=== PATIENT | male | born 1990 | race Caucasian/White ===

== ENCOUNTER 2025-04-09 16:58 | Emergency (ER) | payer BC, SELFPAY ==
[2025-04-09 16:58] VITALS: BP 126/85; PULSE 66; RESP 16; TEMP 36.4; O2SAT 100; BMI 25.6
[2025-04-09 17:10] VITALS: BP 126/85; PULSE 66; RESP 16; TEMP 36.6; O2SAT 100
--- NOTE | 2025-04-09 17:18 | EX.ED.DYSGE1 ---
HPI History of Present Illness Chief Complaint: Edema Detail of Chief Complaint: Patient with rash on bilateral hands that itches. Informant: patient Onset/Context/Timing Onset: Days Context: Gradual Onset Timing: Continuous Current Severity: Mild Maximum Severity: Mild Narrative Narrative: Healthy 34-year-old male no past medical history. Has had an intermittent rash on his hands that itches this is the third time since November. He does get exposed to certain chemicals at work but has never had a problem with them until recently. If that is the cause at all. He denies any illness. He denies any pain or pus. Prior similar symptoms: Yes Recent Illness/Hospitalization: No PFSH PFSH Medical History no medical history no medical history Home Medications ?Medication ?Instructions ?Recorded ?Last Taken ?Type prednisone 20 mg tablet 40 mg (2 x 20 mg) PO DAILY 7 days 04/09/25 Unknown Rx #14 tabs Allergy/AdvReac Type Severity Reaction Status Date / Time No Known Allergies Allergy Verified 04/09/25 17:01 Surgical History no surgical history Social History Smoking Status: Never smoker ROS ROS ED ROS Narrative Denies recent illness. Rash on his hands that itches. Constitutional Constitutional ED: Denies chills or fever(s) Eyes Eyes: Denies blurry vision ENT ENT ED: Denies ear pain Cardiovascular Cardiovascular: Denies chest pain Respiratory/Chest Respiratory/Chest: Denies cough or dyspnea Gastrointestinal Gastrointestinal: Denies abdominal pain, diarrhea, nausea or vomiting Genitourinary Genitourinary ED: Denies dysuria Musculoskeletal Musculoskeletal: Denies arthralgias or back pain Integumentary Reports rash; Denies abscess or Abrasions Neurologic Neurologic: Denies headache(s) Psychiatric Psychiatric: Denies anxiety Endocrine Endocrinology: Denies cold intolerance Hematologic/Lymphatic Hematologic/Lymphatic: Reports none Allergic/Immunologic Allergic/Immunologic ED: Denies mouth swelling, tongue swelling or urticaria EXAM Physical Exam Narrative Exam Narrative: Well-appearing 34-year-old male. Vital signs stable afebrile he does not look septic or toxic he is in no acute distress. H EENT exam pupils are round react light. Moist mucous membranes. Neck nontender no lymphadenopathy. Back nontender. Lungs clear to auscultation bilaterally. Heart regular rhythm rate about 65 no murmur. Chest wall ribs nontender. Abdomen soft nontender. Moving all 4 extremities. On the top of his knuckles on his MCPs bilaterally. Mildly red minimally swollen. Consistent with a contact dermatitis. There is a small similar rash on his dorsum of his forearms. There is no lymphangitic streaking. Is not hot. Not tender. Does not look like cellulitis. There is no axillary lymphadenopathy. He has full flexion extension of both hands. Neurologically he is awake alert. He is answer questions follow commands Const Vital Signs: 04/09/25 16:58 04/09/25 17:10 Temperature 97.6 F L 98 F Temperature Source Temporal Pulse Rate 66 66 Respiratory Rate 16 16 Blood Pressure 126/85 H 126/85 H Blood Pressure Mean 98 98 Pulse Ox 100 100 Oxygen Delivery Method Room Air MDM MDM MDM Narrative Medical decision making narrative: 34-year-old male most likely contact dermatitis or allergic reaction to chemicals exposed to at work. Currently is on no medications other than occasionally takes ibuprofen when this occurs. He has been on no recent antibiotics. He does not need any imaging or lab work. He is placed on prednisone. Outpatient follow-up with insurance examining clerk if not improved. History & Record Review Discussion w/independent historian: Patient Additional record(s) reviewed:: No prior records Discharge Plan Triage Chief Complaint: Edema ED Provider: Gonzales Manzo Dx/Rx/DC Orders Clinical Impression: Contact dermatitis, Allergic reaction Instructions: ED General Allergic Reactions, ED Contact Dermatitis Prescriptions: New prednisone 20 mg tablet 40 mg PO DAILY 7 Days Qty: 14 1RF Primary Care Provider: GEOVANNI Gonsalez Referrals: Marjan Johnson MD [Non-Staff, Dermatology] - 1 Week if not improving GEOVANNI Gonsalez [Primary Care Provider, None] Activity Restrictions/Additional Instructions: Most likely allergic reaction or contact dermatitis something your hands are coming contact with your allergic to. Motrin for any pain and swelling. Ice and elevate to decrease the swelling. The steroid prednisone 40 mg a day till this is gone. Follow-up with a insurance examining clerk if not improving return if a lot worse. Print Language: [place] Disposition Disposition: Home, Self Care
--- OUTSIDE RECORDS SUMMARY | 2025-04-09 17:32 | XMS RPT_ITS | CCD ---
Author Organization [facility] Inform ion Partnership [facility] Care Team Providers Care Cured Meats Supervisor Name Role Phone Unavailable Primary Care Provider Unavailabl e Allergies Allergy Classification Reported Allergen(s) Allergy Type Date of Onset Reaction(s) Facility (2 sources) bee venom Propensity to adverse reactions to drug 12-08-2019 [facility]- [place], [place] Medications Current Medications Medication Drug Class(es) Dates Sig (Normalized) Sig (Original) ascorbic acid 500 mg chewable tablet (2 sources) Vitamin C take 1 tablet by shaka th once daily ascorbic acid (Vitamin C) 500 MG tablet Take 500 mg by mouth daily. Active take 1 tablet by mouth once ruchi y vitamin C (ASCORBIC ACID) 500 MG tablet Take 500 mg by mouth daily 0 Active 2 ml famotidine 10 mg/ml injection (2 sources) Histamine-2 Receptor Antagonist Start: 12-08-2019 famotidine (PEPCID) injection 20 mg Start: 12-08-2019 End: 12-15-2019 take 1 tablet by mouth twice daily famotidine (PEPCID) 20 MG tablet Take 1 tablet by mouth 2 times daily for 7 days 14 tablet 0 12/08/2019 12/15/2019 Active predniSONE 10 mg oral tablet (1 source) Start: 12-08-2019 End: 12-12-2019 take 4 tablets by mouth once daily predniSONE (DELTASONE) 10 MG tablet Take 4 tablets by mouth daily for 4 days 16 tablet 0 12/08/2019 12/12/2019 Active Completed/Discontinued Medications Medication Drug Class(es) Dates Sig (Normalized) Sig (Original) 1 ml diphenhydrAMINE hydrochloride 50 mg/ml cartridge (2 sources) Histamine-1 Receptor Antagonist Start: 12-08-2019 End: 12-08-2019 diphenhydrAMINE (BENADRYL) injection 25 mg Start: 12-08-2019 End: 12-15-2019 take 1 tablet by mouth every six hours as needed diphenhydrAMINE (BENADRYL ALLERGY) 25 MG tablet Take 1 tablet by mouth every 6 hours as needed for Itching or Allergies Do not perform important or sensitive activities while taking Benadryl, do not drive with this medication or drink alcohol or take narcotics 28 tablet 0 12/08/2019 12/15/2019 Active 50 ml sodium chloride 9 mg/m l injection (1 source) Start: 12-08-2019 End: 12-08-2019 0.9 % sodium chloride bolus Problems Problem Classification Problem Date Documented Da te Episodic/Chronic Other diseases of veins and lymphatics (1 source) Lymphangitis; Translations: [Lymphangitis] Onset: 12-17-2024 Chronic Poisoning by nonmedicinal substances (1 source) Bee sting; Translations: [Bee sting, accidental or unintentional, initial encounter] Episodic Skin and subcutaneous tissue infections (1 source) Cellulitis of right upper limb; Translations: [Cellulitis of right upper limb] 12-17-2024 Episodic Results Test Name Value Interpretation Reference Range Facil ity ED PROV NOTEon 12-17-2024 ED PROV NOTE HNO ID: [id number] Author: ANKITA RHODES PA-C Service: Emergency Medicine Author Type: Physician Wad Printing Machine Operator Type: ED Provider Notes Filed: 12/17/2024 14:54 Note Text: ED Provider Note Patient Name: David Guajardo : 1990 SERVICE DATE: 12/17/24 History Patient presents with: Wound Check: Pt complaining of redness and swelling to right lower arm; (+) bumps x 2; Denies any drainage; David is a 34-year-old immunocompetent otherwise healthy male presenting today with concerns of redness and pain of the right upper extremity that he noticed yesterday. He noticed several skin bumps that may have been insect bites or poison taniya in the volar mid forearm of the right upper extremity yesterday. Has now developed into erythema around this as well as streaking up into the armpit. He denies fever chills nausea vomiting. He reports itching and pain. History reviewed. No pertinent past medical history. History reviewed. No pertinent surgical history. No family history on file. Social History[1] ALLERGIES No Known Allergies Review of Systems Physical Exam Vitals [12/17/24 1431] BP Pulse Temp Temp src Resp SpO2 Weight Height 133/91 60 37.2 ?C (99 ?F) Temporal 20 98 % 75.8 kg (167 lb) 1.778 m (5' 10) Physical Exam Vital signs noted. General: Well-developed patient in no acute distress. Alert and oriented x3. Skin: Warm and dry with no visualized rashes. Head: Normocephalic and atraumatic. Eyes: Sclera nonicteric. ENT: Oral mucosa moist. Neck: Supple and nontender. Trachea midline. No JVD. Cardiac: Regular rate and rhythm. Pulmonary: Normal respiratory pattern without conversational dyspnea or signs of respiratory distress. Extremities: Right arm does demonstrate raised wheals, 3 of them are visualized over the volar mid forearm. Surrounding erythema with lymphangitic streaking towards the axilla. Flexion extension the elbow is maintained Mauricio motions of the hand are intact sensation intact distally with good capillary refill. No palpable fluctuance or purulence is encountered. No significant axillary lymphadenopathy is palpated. Well perfused, no peripheral edema, no signs of DVT. Neuro: No focal deficits or lateralizing signs. Appears to move all extremities equally well. Diagnostic Testing ED Labs Ordered and Reviewed - No data to display Procedures ED Course / Clinical Impression Clinical Impressions as of 12/17/24 1454 Lymphangitis MDM / Disposition / Plan 34-year-old immunocompetent otherwise healthy male with lymphangitis of the right upper extremity. Original source may have been insect bite or plant dermatitis or other small skin trauma. No evidence of purulence or abscess formation. Patient is otherwise healthy immunocompetent is afebrile. We discussed shared medical decision making patient elects for outpatient management follow-up in 48 hours. Will prescribe Keflex patient is given his first dose in the emergency department. Cetirizine is given as well as a prescription for triamcinolone for patient's pruritic symptoms. We discussed worsening signs and symptoms that warrant return to the emergency department. Patient discharged home ambulatory afebrile in stable condition. SIGNATURE: Clovis Rhodes PA-C - [1] Social History Tobacco Use Smoking status: Never Smokeless tobacco: Never Vaping Use Vaping status: current everyday user Substance and Sexual Activity Alcohol use: Yes Drug use: Not on file Sexual activity: Not on file CLOVIS RHODES 12/17/24 1454 Normal [facility] Office Visiton 12-17-2024 Follow-up visit [id number] Keenan Guajardo 1990 M Date Provider Department Center 12/17/2024 [id number] [place]ST[place] [facility] [place] [facility] [place] None No family history on file Level of Service:22128 RI OFFICE/OUTPATIENT NEW LOW MDM 30 MINUTES Reason for Visit and Comments: Insect Bite [[id number]] - Bug bites on right arm, Itchy and red, Started yesterday. Normal [facility] Progress Noteon 12-17-2024 Progress Note [facility] [employer] [facility] [employer] [facility] [address] [facility] [address] Dept: [phone] Dept Loc: [phone] Subjective Keenan Guajardo is a 34 y.o. year old who presents to the office with the following complaint(s): Chief Complaint Patient presents with Insect Bite Bug bites on right arm, Itchy and red, Started yesterday. HPI: A 34-year-old male comes in with complaints of what he believes is a bug bite to his right forearm. Patient states he first noticed that yesterday and then upon wakening today symptoms have rapidly worsened which include a red line going up into his right armpit as well as some soreness into his right armpit and shoulder region. Denies fevers or chills. No other complaints at this time. Review of Systems Constitutional: Negative for chills and fever. Skin: Positive for color change. Allergies[1] Current Medications[2] Problem List[3] Social History Tobacco Use Smoking status: Never Smokeless tobacco: Current Substance Use Topics Alcohol use: Yes Objective Objective BP 120/84 (BP Location: Left arm, Patient Position: Sitting, BP Cuff Size: Adult) Pulse 57 Temp 36.6 ?C (97.9 ?F) (Infrared) Ht 5' 10 (1.778 m) Wt 167 lb 12.8 oz (76.1 kg) SpO2 97% BMI 24.08 kg/m? Physical Exam Vitals and nursing note reviewed. Constitutional: General: He is awake. He is not in acute distress. Appearance: Normal appearance. He is not ill-appearing, toxic-appearing or diaphoretic. HENT: Head: Normocephalic and atraumatic. Eyes: Conjunctiva/sclera: Conjunctivae normal. Pulmonary: Effort: Pulmonary effort is normal. Musculoskeletal: General: Normal range of motion. Cervical back: Normal range of motion and neck supple. Skin: General: Skin is warm. Comments: Right forearm: An area of erythema which is slightly warm to palpation and lymphatic streaking proceeding up the right inner arm. Neurological: General: No focal deficit present. Mental Status: He is alert and oriented to person, place, and time. Psychiatric: Mood and Affect: Mood normal. Behavior: Behavior is cooperative. Assessment/Plan 1. Cellulitis of right upper extremity Patient was informed that unfortunately due to the lymphatic streaking, patient will need further evaluation in the emergency room. The patient states understanding agrees above plan of care. Patient given educational materials - see patient instructions. Discussed use, benefit, and side effects of prescribed medications. All patient questions answered. Pt voiced understanding and agrees with treatmentplan.Follow up as directed. Maite was used to dictate this note. DIPAK Dugan NP 12/17/2024 2:13 PM [1] Allergies Allergen Reactions Bee Venom Rash [2] Current Outpatient Medications: ascorbic acid (Vitamin C) 500 MG tablet, Take 500 mg by mouth daily. (Patient not taking: Reported on 12/17/2024), Disp: , Rfl: [3] There is no problem list on file for this patient. [facility] ED Provider Noteon 0 ED Provider Note This is Dr. Maggi herrera's supervisory note. I saw the patient with the PA/GRADUATE CIVIL ENGINEER/resident and found: This patient is pretty healthy got stung by a wasp and developed a diffuse erythroderma, itching, burning sensation. Paramedics gave Benadryl and Solu-Medrol prior to arrival, patient has no airway symptoms, exam shows no wheezing, airway intact, no airway edema, voice normal, we will treat with Pepcid and additional observation to allow the medications to start to work. Romel Villatoro MD 12/08/191925 [facility] ED Provider Note [facility]ADIM DIA ED EMERGENCY DEPARTMENT ENCOUNTER Pt Name: Keenan Guajardo Birthdate 1990 Date of evaluation: 12/08/2019 Provider: BEATRIZ Patel CHIEF COMPLAINT Chief Complaint Patient presents with ? Allergic Reaction HISTORY OF PRESENT ILLNESS (Location/Symptom, Timing/Onset, Context/Setting, Quality,Duration, Modifying Factors, Severity) Note limiting factors. HPI I have seen this patient With supervising physician Keenan Gusmanan is a 29 y.o. male who presents to the emergency department complaint of being stung by a bee approximately 6 PM. Patient states that he became red cells a few mild swelling, took some Benadryl to the shower and call EMS. Patient was given 50 mg of Benadryl and also 125 symmetrical in which the patient states that his reaction is not currently worse. He denies any history this happen before bee stings. He denies any change in voice, fever, chills, nausea, vomiting, diarrhea, chest pain, shortness of breath, tongue or lip swelling. He admits to having a rash all over his body. No other complaints from the patient at this time I wore a N95 during the entire visit REVIEW OF SYSTEMS (2+ for level 4; 10+ for level 5) Review of Systems Constitutional: Negative for chills, fatigue and fever. HENT: Negative for congestion, sinus pain, sore throat and voice change. Eyes: Negative. Respiratory: Negative for cough, shortness of breath and wheezing. Cardiovascular: Negative for chest pain, palpitations and leg swelling. Gastrointestinal: Negative for abdominal distention, abdominal pain, blood in stool, constipation, diarrhea, nausea and vomiting. Endocrine: Negative. Genitourinary: Negative for dysuria, frequency and hematuria. Musculoskeletal: Negative for arthralgias and neck stiffness. Skin: Positive for rash. Negative for color change, pallor and wound. Neurological: Negative for dizziness, weakness, light-headedness, numbness and headaches. Psychiatric/Behavioral: Negative. PAST MEDICAL HISTORY History reviewed. No pertinent past medical history. SURGICAL HISTORY History reviewed. No pertinent surgical history. CURRENT MEDICATIONS Discharge Medication List as of 12/08/2019 10:37 PM CONTINUE these medications which have NOT CHANGED Details vitamin C (ASCORBIC ACID) 500 MG tablet Take 500 mg by mouth dailyHistorical Med ALLERGIES Bee venom FAMILY HISTORY History reviewed. No pertinent family history. SOCIAL HISTORY Social History Socioeconomic History ? Marital status: Single Spouse name: None ? Number of children: None ? Years of education: None ? Highest education level: None Occupational History ? None Social Needs ? Financial resource strain: None ? Food insecurity Worry: None Inability: None ? Transportation needs Medical: None Non-medical: None Tobacco Use ? Smoking status: Never Smoker ? Smokeless tobacco: Current User Types: Chew Substance and Sexual Activity ? Alcohol use: Yes Comment: one beer a week ? Drug use: Never ? Sexual activity: None Lifestyle ? Physical activity Days per week: None Minutes per session: None ? Stress: None Relationships ? Social connections Talks on phone: None Gets together: None Attends mormon service: None Active member of club or organization: None Attends meetings of clubs or organizations: None Relationship status: None ? Intimate partner violence Fear of current or ex partner: None Emotionally abused: None Physically abused: None Forced sexual activity: None Other Topics Concern ? None Social History Narrative ? None SCREENINGS PHYSICAL EXAM (up to 7 forlevel 4, 8 or more for level 5) ED Triage Vitals [12/08/19 1924] BP Temp Temp Source Pulse Resp SpO2 Height Weight 124/85 97.7 ?F (36.5 ?C) Oral 103 18 100 % -- -- Physical Exam Constitutional: General: He is not in acute distress. Appearance: He is well-developed. He is not diaphoretic. HENT: Head: Normocephalic. Mouth/Throat: Pharynx: No oropharyngeal exudate. Eyes: General: No scleral icterus. Right eye: No discharge. Left eye: No discharge. Conjunctiva/sclera: Conjunctivae normal. Neck: Musculoskeletal: Neck supple. Cardiovascular: Rate and Rhythm: Normal rate and regular rhythm. Heart sounds: Normal heart sounds. No murmur. No friction rub. No gallop. Pulmonary: Effort: Pulmonary effort is normal. No respiratory distress. Breath sounds: Normal breath sounds. No stridor. No wheezing or rales. Comments: Breathing comfortable on room air, completed. This is, no respiratory distress, voice appears normal Chest: Chest wall: No tenderness. Abdominal: General: Bowel sounds are normal. There is no distension. Palpations: Abdomen is soft. Tenderness: There is no abdominal tenderness. There is no guarding or rebound. Musculoskeletal: Normal range of motion. General: No tenderness. Skin: General: Skin is warm and dry. Coloration: Skin is not pale. Findings: Rash present. No erythema. Comments: Patient does have a significant diffuse urticarial rash covering 80 percent of his body. No evidence of angioedema or anaphylaxis unfilled examination. Mallampati class 1 Neurological: General: No focal deficit present. Mental Status: He is oriented to person, place, and time. Psychiatric: Mood and Affect: Mood normal. Behavior: Behavior normal. Thought Content: Thought content normal. Judgment: Judgment normal. DIAGNOSTIC RESULTS EKG (Per Emergency Physician): Not clinically indicated Interpretation per the Radiologist below, if available at the time of thisnote: No results found. LABS: Labs Reviewed - No data to display EMERGENCY DEPARTMENT COURSE and DIFFERENTIAL DIAGNOSIS/MDM: Vitals: Vitals: 12/08/19 2102 12/08/191 12/08/19220112/08/192230 BP: 118/75 121/84 110/63 121/80 Pulse: 65 70 65 58 Resp: Temp: TempSrc: SpO2: 100% 100% 100% 100% Weight: Height: Medications famotidine (PEPCID) injection 20 mg (20 mg Intravenous Given 12/08/191941) 0.9 % sodium chloride bolus (0 mLs Intravenous Stopped 12/08/192254) diphenhydrAMINE (BENADRYL) injection 25 mg (25 mg Intravenous Given 12/08/192118) MDM. Nursing Notes were reviewed. CC reviewed, please see HPI for patients CC for my interview Previous Medical charts and nurses note have been reviewed. Available Labs in the ED were reviewed Please seeimages performed above and radiologist interpretation. Please see medications given in the ED above. Based on all information given at this time, patient received a second dose of Benadryl here in the emergency department 25 mg along with Pepcid and a liter of fluid. Patient did have great improvement within his rash and there is no signs of anaphylaxis or angioedema on examination. He is breathing comfortable in room air no throat tightness. Patient will be discharged in stable condition with stable vital signs with return precautions listed below. Patient agrees with this plan. He is given Benadryl, Pepcid, steroids. I do not believe that he needs EpiPen or epinephrine Differentials include: - ALLERGIC reaction At this time , the information and evidence obtained from the HPI and physical examination does not warrant any other testing including laboratory or imaging. Please see below for medications given at discharge. Please see below for patient follow up appointment. Patient was instructed to take medication as prescribed. Patient was also instructed to return to the emergency department if symptoms worsen, or new symptoms develop and these symptoms were discussed with the patient such as throat swelling, tightness, develop shortness of breath, change in voice, lip swelling, tongue swelling to name a few. Comment: Please note this report has been produced using speech recognition software and may contain errors related to that system including errors in grammar, punctuation, and spelling, as well as words and phrases that may be inappropriate. If there are any questions or concerns please feel free to contact the dictating provider for clarification. REVAL: Reevaluation the patient upon Discharge showed no new physical exam finding, symptomatic complaints, stable vital signs. CRITICAL CARE TIME Total Critical Care time was 0 minutes, excluding separately reportable procedures. There was a high probability ofclinically significant/life threatening deterioration in the patient's condition which required my urgent intervention. CONSULTS: None PROCEDURES: Unless otherwise noted below, none Procedures FINAL IMPRESSION 1. Bee sting, accidental or unintentional, initial encounter DISPOSITION/PLAN DISPOSITION Decision To Discharge 12/08/2019 10:35:14 PM PATIENT REFERRED TO: MAMIE ABRAMS [facility] [address] [facility] [address] Schedule an appointment as soon as possible for a visit in 1 week [facility] [address] [place] [phone] Schedule an appointment as soon as possible for a visit in 3 days DISCHARGE MEDICATIONS: Discharge Medication List as of 12/08/2019 10:37 PM START taking these medications Details predniSONE (DELTASONE) 10 MG tablet Take 4 tablets by mouth daily for 4 days, Disp-16 tablet,R-0Print famotidine (PEPCID) 20 MG tablet Take 1 tablet by mouth 2 times daily for 7 days, Disp-14 tablet,R-0Print diphenhydrAMINE (BENADRYL ALLERGY) 25 MG tablet Take 1 tablet by mouth every 6 hours as needed for Itching or Allergies Do not perform important or sensitive activities while taking Benadryl, do not drive with this medication or drink alcohol or take narcotics, Disp-28 tablet,R-0Print (Please note: Portions of this note were completed with a voice recognition program. Efforts were made to edit thedictations but occasionally words and phrases are mis-transcribed.) Form v2016.J.[id number] BEATRIZ Patel (electronically signed) Emergency Medicine Provider BEATRIZ Patel 12/12/19 0714 Normal [facility] [employer] [facility] Vital Signs Date Time Vital Sign Value Performing Clinician Pancho putnambing 12-17-2024 13:58-0400 Body height 177.8 cm Chica Montalvo TUBE WASHER - GRADUATE CIVIL ENGINEER Work Phone: [employer] 12-17-2024 13:58-0400 Body mass index (BMI) [Ratio] 24.08 kg/m2 Chica Montalvo TUBE WASHER - GRADUATE CIVIL ENGINEER Work Phone: [employer] 12-17-2024 13:58-0400 Body temperature 97.9 [degF] Chica Montalvo TUBE WASHER - GRADUATE CIVIL ENGINEER Work Phone: [employer] 12-17-2024 13:58-0400 Body weight 76.11 kg Chica Montalvo TUBE WASHER - GRADUATE CIVIL ENGINEER Work Phone: [employer] 12-17-2024 13:58-0400 Diastolic blood pressure 84 mm[Hg] [place] Montalvo TUBE WASHER - GRADUATE CIVIL ENGINEER Work Phone: [employer] 12-17-2024 13:58-0400 Heart rate 57 /min [place] Montalvo TUBE WASHER - GRADUATE CIVIL ENGINEER Work Phone: [employer] 12-17-2024 13:58-0400 SaO2% (BldA) [Mass fraction] 97 % [place] Montavlo TUBE WASHER - GRADUATE CIVIL ENGINEER Work Phone: [employer] 12-17-2024 13:58-0400 Systolic blood pressure 120 mm[Hg] Chica Montalvo TUBE WASHER - GRADUATE CIVIL ENGINEER Work Phone: [employer] 12-08-2019 22:31-0400 BP Diastolic 80 mm[Hg] Romel [employer] , [place] 12-08-2019 22:31-0400 BP Systolic 121 mm[Hg] Romel [employer] , [place] 12-08-2019 22:31-0400 Pulse (Heart Rate) 58 /min [facility] [place] 12-08-2019 22:31-0400 Pulse Oximetry 100 % Romel Villatoro [facility] , [place] 12-08-2019 19:26-0400 BMI (Body Mass Index) 22.1 kg/m2 Romel [facility], [place] 12-08-2019 19:26-0400 Body weight 69.85 kg Romel Villatoro [facility] , [place] 12-08-2019 19:26-0400 Height 177.8 cm Romel Villatoro [facility] , [place] 12-08-2019 19:24-0400 Body Temperature 97.7 [degF] [facility], [place] 12-08-2019 19:24-0400 Respiratory Rate 18 /min Romel Villatoro [facility] [place] Encounters Encounter Date Encounter Type Care Provider Facility Start: 12-17-2024 End: 12-17-2024 Emergency department patient visit Facility:[facility] Start: 12-17-2024 End: 12-17-2024 Office outpatient new 30 minutes Chiac Boudreaux NP Work Phone: [facility] Comment on above: Cellulitis of right upper extremity (Primary Dx) Start: 12-08-2019 End: 12-08-2019 Emergency department patient visit Romel Villatoro Work Phone: [facility] Comment on above: Bee sting, accidenta l or unintentional, initial encounter (Primary Dx) Plan of Treatment Date Care Activity Detail Author Start: 2065 RSV Immunization for Adults (1 - 1-dose 75+ series) RSV Immunization for Adults (1 - 1-dose 75+ series) [facility] Start: 2040 Zoster Vaccines (1 of 2) Zoster Vacc kinza (1 of 2) [facility] Start: 12-26-2024 Influenza vaccination Influenza Vacc ine (#1) [facility] Start: 12-27-2023 COVID-19 Vaccine ( season) COVID-19 Vaccine ( season) [facility] Start: 12-27-2019 Influenza vaccination Flu vaccine (# 1) [place], [place] Start: 2009 DTaP/Tdap/Td Vaccine s (1 - Tdap) DTaP/Tdap/Td Vaccines (1 - Tdap) [facility] Start: 2009 Hepatitis B Vaccines (1 of 3 - 19+ 3-dose series) Hepatitis B Vaccines (1 of 3 - 19+ 3-dose series) [facility] Start: 2008 Hepatitis C screening Hepatitis C Sc reening [facility] Start: 12-06-2003 Varicella vaccination Varicell a Vaccines (1 of 2 - 13+ 2-dose series) [facility] Start: 2002 Depression Screening Depression Scre ening [facility] Start: 12-06-1991 MMR Vaccines (1 of 1 - Standard series) MMR Vaccines (1 of 1 - Standard series) [facility] Start: 1990 HIV screening HIV Screening [facility] Start: 1990 Lipid panel Lipid Panel [facility] Payers Date Payer Category Payer [employer] Randy mtz [facility] Care - [facility] BLUE CROSS [id number] 2024 Unknown [id number] Social History Date Type Detail Facility Start: 12-08-2019 [facility] Start: 12-08-2019 Tobacco use and exposure Current use r [place], [place] History of tobacco use Chews Tobacco [place], [place] Start: 12-08-2019 End: 12-17-2024 Alcohol intake Current drinker of alcohol (finding) [place], [place] Start: 12-08-2019 Alcohol Comment one beer a week [place], [place] Start: 1990 Sex Assigned At Not on file M [place], [place] Exposure to SARS-CoV -2 (event) Not sure [facility] [place], [place] Start: 12-17-2024 History of Social function [facility] Start: 12-17-2024 Tobacco use panel [facility] Start: 11-26-2021 [facility] History of Present illness Narrative 12-17-2024 Chica Selvin, DIPAK - GRADUATE CIVIL ENGINEER - 12/17/2024 2:00 PM EDT Note Date & Type Note Facility 12-17-2024 History of Presen t illness Narrative Images from the original note were not included. [facility] [address] [facility] [id number] Dept: [phone] Dept Loc: [phone] Franca Guajardo is a 34 y.o. year old who presents to the office with the following complaint(s): Chief Complaint Patient presents with Insect Bite Bug bites on right arm, Itchy and red, Started yesterday. HPI: A 34-year-old male comes in with complaints of what he believes is a bug bite to his right forearm. Patient states he first noticed that yesterday and then upon wakening today symptoms have rapidly worsened which include a red line going up into his right armpit as well as some soreness into his right armpit and shoulder region. Denies fevers or chills. No other complaints at this time. Review of Systems Constitutional: Negative for chills and fever. Skin: Positive for color change. Allergies[1] Current Medications[2] Problem List[3] Social History Tobacco Use Smoking status: Never Smokeless tobacco: Current Substance Use Topics Alcohol use: Yes Objective Objective BP 120/84 (BP Location: Left arm, Patient Position: Sitting, BP Cuff Size: Adult) Pulse 57 Temp 36.6 C (97.9 F) (Infrared) Ht 5' 10 (1.778 m) Wt 167 lb 12.8 oz (76.1 kg) SpO2 97% BMI 24.08 kg/m Physical Exam Vitals and nursing note reviewed. Constitutional: General: He is awake. He is not in acute distress. Appearance: Normal appearance. He is not ill-appearing, toxic-appearing or diaphoretic. HENT: Head: Normocephalic and atraumatic. Eyes: Conjunctiva/sclera: Conjunctivae normal. Pulmonary: Effort: Pulmonary effort is normal. Musculoskeletal: General: Normal range of motion. Cervical back: Normal range of motion and neck supple. Skin: General: Skin is warm. Comments: Right forearm: An area of erythema which is slightly warm to palpation and lymphatic streaking proceeding up the right inner arm. Neurological: General: No focal deficit present. Mental Status: He is alert and oriented to person, place, and time. Psychiatric: Mood and Affect: Mood normal. Behavior: Behavior is cooperative. Assessment/Plan 1. Cellulitis of right upper extremity Patient was informed that unfortunately due to the lymphatic streaking, patient will need further evaluation in the emergency room. The patient states understanding agrees above plan of care. Patient given educational materials - see patient instructions. Discussed use, benefit, and side effects of prescribed medications. All patient questions answered. Pt voiced understanding and agrees with treatmentplan.Follow up as directed. Maite was used to dictate this note. DIPAK Dugan NP 12/17/2024 2:13 PM [1] Allergies Allergen Reactions Bee Venom Rash [2] Current Outpatient Medications: ascorbic acid (Vitamin C) 500 MG tablet, Take 500 mg by mouth daily. (Patient not taking: Reported on 12/17/2024), Disp: , Rfl: [3] There is no problem list on file for this patient. documented in this encounter [facility] Evaluation note Note Date & Type Note Facility Evaluation note Diagnosis Cellulitis of right upper extremity- Primary documented in this encounter [facility] Discharge Instructions * Instructions* Moises Mancia PA - 12/08/2019 Please take medication as prescribed Please follow up with your Physicians as instructed in this discharge paperwork Thank you for choosing [facility] I appreciate your patience Please return to the emergency department if your symptoms worsen, or new symptoms develop as discussed * Attachments The following attachments cannot be sent through Care Everywhere. * Insect Stings and Bites (Serbian) documented in this encounter Assessments Diagnosis Bee sting, accidental or unintentional, initial encounter Summary Purpose Family History No Family History Records FoundNo Family History Records FoundNo Family History Records Found Advance Directives No Advanced Directives Records FoundNo Advanced Directives Records FoundNo Advanced Directives Records Found Additional Source Comments Reason for Visit (unrecogniz ed section and content) Reason Comments Allergic Reaction Reason Comments Insect Bite Bug bites on right a rm, Itchy and red, Started yesterday. (unrecognized sect ion and content) No Status Records FoundNo Status Records FoundNo Status Records Found INFORMATION SOURCE (unrecogn ized section and content) DATE CREATED AUTHOR 01/11/2020 [facility] DATE CREATED AUTHOR AUTHOR'S ORGANIZ ATION 12/19/2024 [facility] DATE CREATED AUTHOR AUTHOR'S ORGANIZ ATION 12/19/2024 [facility] FOR RECORDS PERTAINING TO PATIENTS WHO ARE OR HAVE BEEN ENROLLED IN A CHEMICAL DEPENDENCY/SUBSTANCEABUSE PROGRAM, SOME INFORMATION MAY BE OMITTED. This clinical summary was aggregated from multiple sources. Caution should be exercised in using it in the provision of clinical care. This summary normalizes information from multiple sources, and as a consequence, information in this document may materially change the coding, format and clinical context of patient data. In addition, data may be omitted in some cases. CLINICAL DECISIONS SHOULD BE BASED ON THE PRIMARY CLINICAL RECORDS. [facility]. provides no warranty or guarantee of the accuracy or completeness of information in this document.
== END 2025-04-09 17:31 | disposition home or self-care (01) ==
LOC: ED 17:30
PROVIDERS: Emergency Provider Emergency Medicine; Visit Provider Emergency Medicine
DX: L23.5 Allergic contact dermatitis due to other chemical products (principal)
CPT/HCPCS: 99282